=== PATIENT | female | born 1980 | race Caucasian/White ===

== ENCOUNTER 2016-05-20 15:00 | Outpatient (RCR) | payer OTHER ==
[2016-03-01 16:48] VITALS: BP 117/80; PULSE 82; TEMP 98.5
[2016-03-29 15:45] VITALS: BP 121/72; PULSE 80; TEMP 98.5
[2016-04-12 17:42] VITALS: BP 132/86; PULSE 84; TEMP 98.2
[2016-04-26 18:14] VITALS: BP 138/71; PULSE 71; TEMP 98.3
[~2016-05-20] VITALS: Ht 167.6 cm; Wt 64.5 kg
[2016-05-20 12:01] VITALS: BP 114/79; PULSE 100; TEMP 98.5
[~2016-05-20 15:00] MED LIST: ADDERALL XR20 MG PO; ADDERALL XR30 MG PO; ADDERALL10 MG PO; BIRTH CONTROL PO; DIFLUCAN50 MG PO; LEVORA-28 30 MC1 TA1 PO; MAXALT10 MG PO; ROBAXIN 50500 MG/TAB PO; SINGULAIR 110 MG/TAB PO; TOPAMAX 25MG25 M1 PO; ZANAFLEX CAPSULE4 MG PO; ZYRTEC 10MG10 MG PO
== END 2016-05-30 | disposition home or self-care (01) ==
LOC: EUO
DX: J45.909 Unspecified asthma, uncomplicated (principal)

== ENCOUNTER 2016-07-26 10:30 | Outpatient (RCR) | payer OTHER ==
[2016-07-10 12:08] VITALS: BP 121/83; PULSE 78
[~2016-07-26] VITALS: Ht 167.6 cm; Wt 61.8 kg
[2016-07-26 11:46] VITALS: BP 18/57; PULSE 77; TEMP 98.3
== END 2016-07-26 12:32 | disposition home or self-care (01) ==
LOC: EUO 10:30
DX: J45.909 Unspecified asthma, uncomplicated (principal); Z79.899 Other long term (current) drug therapy